=== PATIENT | female | born 1995 | race Caucasian/White ===

== ENCOUNTER → 2017-04-26 | Outpatient (CLI) | payer BC, MEDICAID ==
[2014-06-12 21:54] VITALS: BP 116/67
[~2017-04-26] MED LIST: NO HOME MEDICATIONS
== END ==
LOC: LAB 14:10
DX: R51 Headache (principal)

== ENCOUNTER → 2017-08-22 | Outpatient (CLI) | payer BC, MEDICAID ==
[2014-06-12 21:54] VITALS: BP 116/67
== END ==
LOC: RAD 16:51
DX: R51 Headache (principal)

== ENCOUNTER → 2018-05-29 | Outpatient (CLI) | payer BC, MEDICAID ==
[2014-06-12 21:54] VITALS: BP 116/67
== END ==
LOC: RAD 09:37
DX: R51 Headache (principal)